=== PATIENT | female | born 1985 | race African-American/Black ===

== ENCOUNTER 2016-07-13 10:30 | Emergency (ER) | payer MEDICAID ==
[~2016-07-13] VITALS: Ht 152.4 cm; Wt 67.0 kg
[2016-07-13] MEDS ORDERED: ONDANSETRON HCL 4MG/2ML VIAL IV ONE (11:15)
[2016-07-13] MEDS ORDERED: FAMOTIDINE 20MG/2ML VIAL IV ONE (11:15)
[2016-07-13] MEDS ORDERED: SODIUM CHLORIDE 0.9% 1,000 ML IV ONE (11:15)
[2016-07-13 11:33] LABS: CLARITY URINE CLEAR (CLEAR); COLOR URINE YELLOW (YELLOW); GLUCOSE URINE NEGATIVE (NEGATIVE); KETONES URINE NEGATIVE (NEGATIVE); LEUKOCYTE ESTERASE URINE NEGATIVE (NEGATIVE); NITRITE URINE NEGATIVE (NEGATIVE); OCCULT BLOOD URINE 2+ (NEGATIVE); PH URINE 6.5 (4.5-8.0); PROTEIN URINE NEGATIVE (NEGATIVE); SPECIFIC GRAVITY URINE 1.006 (1.005-1.030); UROBILINOGEN URINE 0.2 E.U./dL (0.2-1.0)
[2016-07-13 11:36] LABS: BACTERIA URINE NONE SEEN; CALCIUM PHOSPHATE CRYSTALS UR NONE SEEN /lpf; SQUAMOUS EPITHELIAL CELL URINE NONE SEEN /lpf (RARE/1+); WAXY CASTS URINE NONE SEEN /lpf; WBC URINE NONE SEEN /hpf (0-2); YEAST URINE NONE SEEN
[2016-07-13 11:54] LABS: HEMATOCRIT. 37.6 % (36.0-48.0); HEMOGLOBIN. 12.5 g/dL (12.0-16.0); MEAN CORPUSCULAR HEMOGLOBIN 29.8 pg (28.0-32.0); MEAN CORPUSCULAR HGB CONC 33.2 g/dL (31.0-37.0); MEAN CORPUSCULAR VOLUME 89.6 fL (81.0-99.0); PLATELET 215 x1000/uL (130-400); WHITE BLOOD COUNT 8.4 x1000/uL (4.5-11.0)
[2016-07-13 12:02] LABS: CHLORIDE 106 mEq/L (98-107); INDEX HEMOLYSI 1 (1-3); INDEX ICTERIC 1 (1-4); INDEX LIPEMIC 1 (1-3)
[2016-07-13 12:06] LABS: ALBUMIN 3.5 g/dL (3.4-5.0); ANION GAP 10; CALCIUM 8.2 mg/dL (8.5-10.1); CARBON DIOXIDE 29 mEq/L (21-32); LIPASE 174 IU/L (73-393); UREA NITROGEN BLOOD 8 mg/dL (7-21)
[2016-07-13 12:10] LABS: ALANINE AMINOTRANSFERASE 15 IU/L (13-61); eGFR > 60 mL/min (>60)
[2016-07-13 12:22] LABS: PLATELET ESTIMATE NORMAL
[2016-07-13 13:11] VITALS: BP 109/74
== END 2016-07-13 14:59 | disposition home or self-care (01) ==
LOC: ER 11:43
DX: R10.11 Right upper quadrant pain (principal); K21.9 Gastro-esophageal reflux disease without esophagitis; K59.00 Constipation, unspecified; R03.0 Elevated blood-pressure reading, without diagnosis of hypertension; Z98.51 Tubal ligation status; E83.51 Hypocalcemia; E87.6 Hypokalemia
CPT/HCPCS: 36415; 74000; 76705; 80053; 81001; 81025; 83690; 85007; 85027; 96361; 96374; 96375; 99285; J2405; J3490; J7030; Z7610

== ENCOUNTER 2016-09-10 09:18 | Emergency (ER) | payer MEDICAID ==
[~2016-09-10] VITALS: Ht 154.9 cm; Wt 63.8 kg
[2016-09-10 09:54] VITALS: BP 114/76
== END 2016-09-10 12:33 | disposition left against medical advice (07) ==
LOC: ER 09:19
DX: R10.9 Unspecified abdominal pain (principal); Z53.21 Procedure and treatment not carried out due to patient leaving prior to being seen by health care provider

== ENCOUNTER 2017-04-12 14:44 | Emergency (ER) | payer MEDICAID | END 2017-04-12 15:50 | disposition left against medical advice (07) | LOC: ER 15:00 | DX: R10.9 Unspecified abdominal pain (principal); Z53.21 Procedure and treatment not carried out due to patient leaving prior to being seen by health care provider ==